=== PATIENT | male | born 1945 | race Caucasian/White ===

== ENCOUNTER 2019-07-15 09:04 | Inpatient (IN) ==
[2019-07-15] MEDS ORDERED: ALBUT/IPRATROP 3MG/0.5MG NEB 3 ML VIAL NEB STA (09:24)
[2019-07-15] MEDS ORDERED: SODIUM CHLORIDE 0.9% 1000ML 500 ML IV ONE (09:25)
[2019-07-15 09:33] LABS: Basophils # (auto) 0.04 K/uL (0-0.2); Basophils % (auto) 0.4 %; Eosinophils # (auto) 0.29 K/uL (0-0.5); Eosinophils % (auto) 2.6 %; Hematocrit (blood only) 45.6 % (42-52); Hemoglobin 15.8 g/dL (14.0-18.0); Immature Granulocytes # (auto) 0.15 K/uL (0.00-0.02); Immature Granulocytes % (auto) 1.3 %; Lymphocytes # (auto) 4.18 K/uL (1.2-3.4); Lymphocytes % (auto) 36.8 %; Mean Corpuscular Hemoglobin 30.2 pg (25-34); Mean Corpuscular Hgb Conc 34.6 g/dL (32-36); Mean Platelet Volume 9.6 fL (7.4-10.4); Monocytes # (auto) 0.56 K/uL (0.11-0.59); Monocytes % (auto) 4.9 %; Neutrophils # (auto) 6.15 K/uL (1.4-6.5); Platelet Count 253 K/uL (130-400); RDW Coefficient of Variation 14.4 % (11.5-14.5); RDW Standard Deviation 45.8 fL (36.4-46.3); Red Blood Count 5.24 M/uL (4.7-6.1); White Blood Count 11.37 K/uL (4.8-10.8)
[2019-07-15 09:50] LABS: Alanine Aminotransferase 21 U/L (12-78); Albumin Level 3.3 gm/dl (3.4-5.0); Aspartate Aminotransferase 19 U/L (15-37); BUN Creatinine Ratio 8.2 (10-20); Bilirubin Direct 0.2 mg/dl (0-0.2); Blood Urea Nitrogen 13 mg/dl (7-18); Calcium 9.1 mg/dl (8.5-10.1); Carbon Dioxide 23 mmol/L (21-32); Chloride 102 mmol/L (98-107); Creatinine Clr Calc Pharmacy 47.1 ml/min; Est GFR (African American) 49.6; Est GFR (Non-African American) 42.8; Glucose 107 mg/dl (70-99); Potassium 4.1 mmol/L (3.5-5.1); Sodium 133 mmol/L (136-145)
[2019-07-15 09:51] LABS: INR 1.1 (0.9-1.1); Prothrombin Time 10.8 Seconds (9.0-12.0)
[2019-07-15 10:00] LABS: Alkaline Phosphatase 115 U/L (45-117); Bilirubin,Total 0.7 mg/dl (0.2-1); Total Protein 7.7 gm/dl (6.4-8.2); Troponin I < 0.015 ng/ml (0-0.045)
--- NOTE | 2019-07-15 10:00 | XRay Report ---
XR chest 1V portable CLINICAL HISTORY: 74 years-old Male presenting with Weakness. TECHNIQUE: PA and lateral views of the chest were obtained. COMPARISON: None. FINDINGS: Atherosclerosis of the aortic arch. Cardiac silhouette mildly enlarged. Prominence of interlobular se ptal markings and added density of the mid to basilar lungs. Lung volumes are normal. Pulmonary vascu lature is normal. Degenerative changes of the thoracic spine. IMPRESSION: 1. Abnormal interstitial lung markings in the bilateral mid to basilar lungs concerning for intersti tial pneumonia or congestive change. 2. Mild cardiomegaly. Electronically signed by: Ricardo Valerio M.D. 07/15/2019 9:59 AM
--- NOTE | 2019-07-15 10:07 | CT Scan Report ---
CT head/brain wo con CLINICAL HISTORY: 74 years-old Male presenting with confusion. TECHNIQUE: Multidetector CT imaging of the head was performed without the use of intravenous contrast . IV contrast: None. One or more dose lowering techniques were used consistent with the principles of ALARA (as low as reasonably achievable), including automatic exposure control, mA or kV adjustment t o individual patient size, and/or use of iterative reconstruction. COMPARISON: None. CT DOSE (mGy.cm): The estimated cumulative dose is 614.27 mGy.cm. 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 Ventricles and sulci normal in size. No hemorrhage. Sulcal effacement and hypoattenuation of the whit e matter and overlying cortex in the left posterior frontal and anterior parietal region. This may mi nimally affect the posterior left temporal lobe. No midline shift. No extra-axial fluid collection. P aranasal sinuses and mastoid air cells clear. Calvarium intact. IMPRESSION: 1. Acute infarct in the left frontoparietal region, which is in the left middle cerebral artery terr itory distribution. No hemorrhage. The report will be called/faxed according to standard departmental protocol for a critical finding. Electronically signed by: Ricardo Valerio M.D. 07/15/2019 10:06 AM
[2019-07-15] MEDS ORDERED: ASPIRIN 81 MG CHEW PO STA (10:23)
--- NOTE | 2019-07-15 10:34 | History & Physical Report ---
Date of Service July 15, 2019 Assessment & Plan (1) Acute ischemic left MCA stroke: Acute CVA: Not a candidate for tPA- Passed the window period Admit in Tele CT head: Acute infarct in the left frontoparietal region, which is in the left middle cerebral artery territory distribution. No hemorrhage. Stroke work up including lipid panel, A1C, MRI Brain, Carotid Doppler, ECHO Speech and swallow eval Start aspirin, plavix, Lipitor Neuro checks, Neurology consult PT/OT Allow permissive HTN in setting of acute CVA Interstitial lung disease COPD Chronic respiratory failure--oxygen dependency 3 liters QHS Chronic prednisone therapy Mild leukocytosis likely secondary to prednisone Chronic cough--unchanged as per patient/family CXR:Abnormal interstitial lung markings in the bilateral mid to basilar lungs concerning for interstitial pneumonia or congestive change. Continue home inhalers Duo nebs as needed Continue prednisone 10 mg daily Continue Supplemental Oxygen at bedtime Ongoing tobacco use Counseled to quit Nicotine patch Rheumatoid arthritis Follows with rheumatology Dr. Ibarra as outpatient Continue leflunomide, prednisone CKD III Baseline Cr ~1.5 Cr at baseline Monitor renal function avoid nephrotoxic agents as able hyperthyroidism TSH wnl Continue methimazole Hypertension Hold hypertension medications in setting of acute CVA Monitor blood pressure Prediabetes: A1C:5.9 MGUS As per records DVT Px: SCDs for now Code Status DNI/DNR Disposition: PT/OT prior to discharge History of Present Illness Chief Complaint: Dizziness, confusion Primary Care Provider: Mukund Roper MD Patient is a 74-year-old male with history of interstitial lung disease, rheumatoid arthritis, CKD III, COPD, tobacco use disorder, hyperthyroidism, nocturnal oxygen dependency, hypertension, MGUS and other problems presents with history of dizziness, confusion, word finding difficulty since yesterday. Patient is a poor historian. Most of the history is obtained from patient's family, ER physician and medical records. Patient was unsure of the events that happened yesterday. On review of records, patient was informed by Barbie JOHNSON that he has oxygen levels at bedtime have been low despite using 2 L and recommended to increase it to 3 L at bedtime. He was noted to be at baseline by family on . Patient states being confused, having dizziness since yesterday. He is currently oriented to place, person. He was noted to have word finding difficulty, intermittent confusion and slurred speech. He admits to having chronic cough which is unchanged, and continues to smoke 1 pack/day. CT head suggestive of acute left frontoparietal infarct. Denies any history of chest pain, SOB, pedal edema, diaphoresis, hemoptysis, fever, chills, fall, head trauma, LOC, headache, focal weakness, numbness, change in vision, double/blurry vision, facial deformity, bowel/bladder incontinence, nausea, vomiting, abdominal pain, blood in stools, diarrhea, dysuria, hematuria, recent change in medications. Allergies Allergy/AdvReac Type Severity Reaction Status Date / Time No Known Allergies Allergy Unverified 07/15/19 10:12 Home Medications Home Medications Medication Instructions Recorded Confirmed Type cholecalciferol (vitamin D3) 2,000 unit PO DAILY 07/15/19 07/15/19 History [Vitamin D3] cyanocobalamin (vitamin B-12) 1,000 mcg PO DAILY 07/15/19 07/15/19 History folic acid 1 mg PO DAILY 07/15/19 07/15/19 History ipratropium-albuterol 3 ml INHALATION Q4H PRN 07/15/19 07/15/19 History leflunomide 10 mg PO DAILY 07/15/19 07/15/19 History lisinopril-hydrochlorothiazide 1 tab PO DAILY 07/15/19 07/15/19 History methimazole 2.5 mg PO DAILY 07/15/19 07/15/19 History prednisone 10 mg PO DAILY 07/15/19 07/15/19 History umeclidinium-vilanterol [Anoro 1 inh INHALATION DAILY 07/15/19 07/15/19 History Ellipta] Past Med/Surg History Medical History Arthritis (Chronic) Thyroid disorder (Chronic) Hypertension (Chronic) Surgical History History of back surgery Family History Other Family history non-contributory Social History Preferred Language: Amharic Communication Ability: 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 Beliefs That Will Affect Care: None marital status: Single Current Living Situation: Alone current occupational status: retired Other Information That Helps Us Care for You: No Feels Safe at Home: Yes Safety Concerns: Feels Safe At This Time Smoking Status: Current every day smoker Tobacco Type: cigarettes ; Do You Dip or Chew Tobacco: No ; Second Hand Exposure: No ; Tobacco Cessation Education Requested by Patient: No Hx Alcohol Use: No Hx Substance Use: No Review of Systems Review of Systems: All systems reviewed & are unremarkable except as noted in HPI & below Physical Exam Physical Exam: Physical Exam: Vitals signs as noted above General Appearance:Moderately built and nourished, no apparent distress Head: normocephalic, Atraumatic, +intermittent slurred speech, word finding difficulty Eyes: normal inspection, EOMI Neck: supple, Trachea midline Respiratory/Chest: Decreased breath sounds, R basal crackles Cardiovascular: S1, S2, No murmur Abdomen/GI:Soft, Non tender, Bowel sounds present Extremities/Musculoskelatal:normal inspection, no edema Neurologic/Psych:grossly no focal neurological deficits Skin: normal color, warm Results & Data Vital Signs (Past 12 Hours) Vital Signs Temp Pulse Pulse Resp BP Pulse Ox 07/15/19 09:38 84 14 98 07/15/19 09:30 89 26 H 114/81 96 07/15/19 09:24 91 H 21 07/15/19 09:22 93 H 20 130/79 07/15/19 09:06 36.6 C 90 22 98/68 L 97 07/15/19 07:36 90 19 158/91 H Laboratory Results Short CBC 07/15/19 Range/Units 09:20 WBC 11.37 H (4.8-10.8) K/uL Hgb 15.8 (14.0-18.0) g/dL Hct 45.6 (42-52) % Plt Count 253 (130-400) K/uL BMP 07/15/19 09:20 Sodium 133 L Potassium 4.1 Chloride 102 Carbon Dioxide 23 BUN 13 Creatinine 1.58 H Glucose 107 H Calcium 9.1 Cardiac Enzymes 07/15/19 Range/Units 09:20 Troponin I < 0.015 (0-0.045) ng/ml Liver Function 07/15/19 Range/Units 09:20 Total Bilirubin 0.7 (0.2-1) mg/dl Direct Bilirubin 0.2 (0-0.2) mg/dl AST 19 (15-37) U/L ALT 21 (12-78) U/L Alkaline Phosphatase 115 (45-117) U/L Albumin 3.3 L (3.4-5.0) gm/dl Diagnostic Findings CT head: Acute infarct in the left frontoparietal region, which is in the left middle cerebral artery territory distribution. No hemorrhage. CXR: 1. Abnormal interstitial lung markings in the bilateral mid to basilar lungs concerning for interstitial pneumonia or congestive change. 2. Mild cardiomegaly. ECG Additional Comments: EKG: Sinus rhythm, first-degree AV block, QTC 445
[2019-07-15] MEDS ORDERED: ACETAMINOPHEN 325 MG TAB PO PRN (12:52)
[2019-07-15] MEDS ORDERED: PHARMACIST DISCHARGE MED REC CONSULT PRN (12:52)
[2019-07-15] MEDS ORDERED: ALBUT/IPRATROP 3MG/0.5MG NEB 3 ML VIAL INH PRN (12:52)
[2019-07-15] MEDS ORDERED: POLYETHYLENE (MIRALAX) 17 GM PACK PO PRN (12:52)
[2019-07-15 13:25] LABS: Estimated Average Glucose 123 mg/dl; Hemoglobin A1C 5.9 % (4.5-5.6)
[2019-07-15] MEDS: NICOTINE 21 MG/24 HR TDSY TD SCH (14:07)
--- NOTE | 2019-07-15 16:22 | Magnetic Resonance Report ---
MR brain wo con CLINICAL HISTORY: 74 years-old Male presenting with Stroke. TECHNIQUE: Multisequence, multiplanar MR imaging of the brain was performed without the use of intrav enous contrast. IV contrast: None. COMPARISON: Noncontrast CT head performed earlier today. FINDINGS: Localizer images: Unremarkable. Bone marrow signal intensity within the calvarium within normal limits. Normal midline sagittal structures. Proportional ventricular and sulcal prominence, likely age-relate d parenchymal volume loss. No midline shift. Diffusion in the left posterior temporal and left pariet al lobe. T2/FLAIR hyperintensity and localized swelling in this region. No extra-axial fluid collection. T2 skull base flow voids preserved. IMPRESSION: 1. Acute infarct in the left posterior temporal and left parietal lobe. This is in the left middle c erebral artery territory distribution. No hemorrhage. Electronically signed by: Ricardo Valerio M.D. 07/15/2019 4:21 PM
--- NOTE | 2019-07-15 16:48 | Ultrasound Report ---
US carotid doppler BI CLINICAL HISTORY: 74 years-old Male presenting with Stroke. TECHNIQUE: Real-time grayscale and color and spectral Doppler ultrasound imaging of the bilateral car otid arteries was performed. Stenosis measurements were based on NASCET-like criteria (distal lumen d iameter as the denominator for stenosis measurement). COMPARISON: None. FINDINGS: RIGHT: Common carotid artery (CCA): Atherosclerosis at the carotid bulb. Peak systolic velocity (PSV) 74 cm/ s. Internal carotid artery (ICA): Patent. PSV 55 cm/s. End diastolic velocity (EDV) 15 cm/s. ICA/CCA (systolic) ratio: 0.7. External carotid artery (ECA): Patent. PSV 70 cm/s. LEFT: CCA: Atherosclerosis at the carotid bulb. PSV 70 cm/s. ICA: Atherosclerosis of the proximal ICA. PSV 107 cm/s. EDV 32 cm/s. ICA/CCA (systolic) ratio: 1.5. ECA: Patent. PSV 96 cm/s. Bilateral antegrade flow within the vertebral arteries. Blood pressure: Not performed Brachial: Right: mmHg, Left: mmHg. Reference ranges: Stenosis measurements are compared to reference velocity parameters by the Society of Radiologists in Ultrasound (SRU) consensus and Sonographic NASCET index (S-NASCET). * SRU Primary parameters: ICA PSV <125 cm/s = normal or less than 50% stenosis; ICA PSV 125-230 cm/s = 50-69% stenosis; ICA PSV >230 cm/s = greater than or equal to 70% stenosis. * SRU Additional parameters: ICA/CCA PSV ratio <2 = normal or less than 50% stenosis; ratio 2-4 = 5 0-69% stenosis; ratio >4 = greater than or equal to 70% stenosis. ICA EDV <40 cm/s = normal or less t sen 50% stenosis; ICA EDV 40-100 cm/s = 50-69% stenosis; ICA EDV >100 cm/s = greater than or equal to 70% stenosis. * S-NASCET parameters: Deceleration spectral broadening + PSV <125 cm/s = less than 50% stenosis; pa nsystolic spectral broadening + PSV <125 cm/s = 16-49% stenosis; pansystolic spectral broadening + PS V >125 cm/s + EDV <110 cm/s or ICA/CCA PSV ratio 2-4 = 50-69% stenosis; pansystolic spectral broadeni ng + PSV >270 cm/s OR EDV >110 cm/s OR ICA/CCA PSV ratio >4 = 70-79% stenosis; EDV >140 cm/s = 80-99% stenosis. IMPRESSION: 1. Atherosclerosis without hemodynamically significant stenosis in the carotid arteries. Electronically signed by: Ricardo Valerio M.D. 07/15/2019 4:46 PM
--- NOTE | 2019-07-15 16:51 | Emergency Department Note ---
Entered by Rachel Landaverde acting as a scribe for Asael Vigil MD ED Provider Note Name: Sherif Castaneda Age: 74M Arrives Via: Private vehicle Informant: Patient CC: Confusion HPI: 74 year old male arrives for evaluation of 2 days of worsening confusion with some associated shortness of breath. The patient reports that his "head feels funny" and states that he is experiencing some memory issues. He notes that he is unsure why he is in the ED today. He denies any coughing, chest pain, fever, chills, syncope, falls, headache, diarrhea, or leg swelling. He notes that he has been feeling short of breath for awhile. He states that he has smoked one pack of cigarettes a day since he was 19 years old. He reports that he wears O2 at night. He states that he has been eating normally. He denies any history of diabetes or dyslipidemia. He notes that he has a history of thyroid issues, hypertension, and arthritis. He denies any history of strokes. He denies drinking alcohol regularly or any substance abuse. He denies any known allergies. He notes that he was hospitalized for pneumonia in the past. The patient's relative reports that the patient seems more confused from his baseline. His relative states that the patient had difficulty remembering her phone number this morning. His relative notes that the patient told her that he had a call last night from an unknown woman that told him to see a doctor due to his O2 saturiation levels. ROS: See above HPI for pertinent positives & negatives. A total of 10 systems reviewed and were otherwise negative. Past Medical History: Hypertension, arthritis, thyroid disorder, chronic back pain, chronic O2 use at night Past Surgical History: Back surgery Family History: No significant family history Social History: Single, retired. Current tobacco smoker, 1 pack a day. No alcohol or substance use. Home Medications: Arthritis, hypertension, and thyroid medications. Allergies NKDA Physical: Vitals: BP: 115/71, HR: 85, R: 18, T: 97.7, O2: 90 Exam: GENERAL: Patient is tired and dehydrated appearing and in no acute distress. Appears older than stated age. EYES: No scleral icterus, unremarkable pupils. ENT: Mucous membranes dry, no nasal congestion. NECK: No masses appreciated, no meningismus, trachea is midline. RESPIRATORY: No dyspnea. Mild diffuse wheezing with some rhonchi in left lower lobe. CARDIOVASCULAR: Regular rate and rhythm with periodic extra beats. No murmurs, rubs, gallops appreciated. GASTROINTESTINAL: Abdomen soft, non-tender, no peritonitis. Bowel sounds positive. No masses appreciated. BACK: No midline tenderness, no CVA tenderness EXTREMITIES: Normal motion all extremities, no cyanosis, no edema. Clubbing of fingertips. NEUROLOGIC: Awake and oriented to name but confused on time, location, and previous events. No acute motor or sensory deficits, no focal weakness, cranial nerves grossly intact. SKIN: No rash, no jaundice, no diaphoresis. GC15 ED Course: Prior Medical Record, Triage/Nursing Notes, Medications, Allergies reviewed by Me Vital Signs: reviewed and remarkable for wnl Labs: Reviewed and unremarkable Interventions: Duoneb, Asa 324mg PO Imaging: Radiology results as stated below per my review and the radiologist's interpretation: CT head/brain wo con CLINICAL HISTORY: 74 years-old Male presenting with confusion. TECHNIQUE: Multidetector CT imaging of the head was performed without the use of intravenous contrast. IV contrast: None. One or more dose lowering techniques were used consistent with the principles of ALARA (as low as reasonably achievable), including automatic exposure control, mA or kV adjustment to individual patient size, and/or use of iterative reconstruction. COMPARISON: None. CT DOSE (mGy.cm): The estimated cumulative dose is 614.27 mGy.cm. 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 Ventricles and sulci normal in size. No hemorrhage. Sulcal effacement and hypoattenuation of the white matter and overlying cortex in the left posterior frontal and anterior parietal region. This may minimally affect the posterior left temporal lobe. No midline shift. No extra-axial fluid collection. Paranasal sinuses and mastoid air cells clear. Calvarium intact. IMPRESSION: 1. Acute infarct in the left frontoparietal region, which is in the left middle cerebral artery territory distribution. No hemorrhage. The report will be called/faxed according to standard departmental protocol for a critical finding. Electronically signed by: Ricardo Valerio M.D. 07/15/2019 10:06 AM XR chest 1V portable CLINICAL HISTORY: 74 years-old Male presenting with Weakness. TECHNIQUE: PA and lateral views of the chest were obtained. COMPARISON: None. FINDINGS: Atherosclerosis of the aortic arch. Cardiac silhouette mildly enlarged. Prominence of interlobular septal markings and added density of the mid to basilar lungs. Lung volumes are normal. Pulmonary vasculature is normal. Degene rative changes of the thoracic spine. IMPRESSION: 1. Abnormal interstitial lung markings in the bilateral mid to basilar lungs concerning for interstitial pneumonia or congestive change. 2. Mild cardiomegaly. Electronically signed by: Ricardo Valerio M.D. 07/15/2019 9:59 AM EKG: Per My Interpretation: Indication Weakness: Sinus 92 bpm with 1st av block and qtc 445. No previous for comparison. No ectopy nor ischemia Course: 916:The patient was evaluated in room B09. A complete history and physical examination was performed. 1019: I reevaluated the patient at this time. He appears to be improving with fluids. He makes it clear that his symptoms started . He confirms that his symptoms were ongoing yesterday upon waking. He denies taking any aspirin or other blood thinners.checked. 1023: I discussed the patient's case with Dr. Richey, Neurology, who agrees with the patient treatment plan. He recommended that waiting before any further imaging. He recommends letting the hospitalist service manage the patient further. 1033: I discussed the patient's case with Dr. Bledsoe, [facility], who will evaluate the patient for further management and care. 1040: Upon reevaluation, the patient is resting comfortably. I discussed laboratory and radiographic results with the patient. He verbalized agreement of the treatment plan. The patient will be evaluated for further management and care. Blood pressure: Normal. No Referral necessary Disposition: Being evaluated by a hospitalist. See plan for instructions. Condition: Good. Prescriptions: none. Differentials: Differential includes acute coronary syndrome, myocardial infarction, CVA, TIA, anemia, infection, pneumonia, UTI, pyelonephritis, poor nutrition, dehydration, electrolyte disturbance,hypoglycemia amongst other pathologies. Medical Decision Makin yr old pleasant individual who was sent in by home nursing for reported hypoxia though after discussing in depth with patient very clearly main issue is his speech finding issues, confusion, and not quite acting himself. Symptoms very much started at least yesterday morning (30 hrs ago) and possibly a day earlier. He has mild wheezing but no significant shortness of breath. NSR on EKG/Monitor. No cardiac history and no evidence this is cva. He has no weakness in strength, reported vision issues, nor other neuro deficits. CT head reveals acute left MCA infarct. I did reveal with Neuro who agree patient is not intervention nor TPA candidate at this time. Given ASA 324mg PO and will defer further imaging to primary team. Impression: Acute left sided MCA stroke The scribe's documentation has been prepared under my direction and personally reviewed by me in its entirety. I confirm that the note above accurately reflects all work, treatment, procedures, and medical decision making performed by me. Asael Vigil MD Impression & Plan Acute ischemic left MCA stroke Past Med/Surg History Medical History Arthritis (Chronic) Thyroid disorder (Chronic) Hypertension (Chronic) Surgical History History of back surgery Family History Other Family history non-contributory Social History Preferred Language: Honduran Communication Ability: Effective Artists' Model Required: No Beliefs That Will Affect Care: None marital status: Single Current Living Situation: Alone current occupational status: retired Other Information That Helps Us Care for You: No Feels Safe at Home: Yes Safety Concerns: Feels Safe At This Time Smoking Status: Current every day smoker Tobacco Type: cigarettes ; Do You Dip or Chew Tobacco: No ; Second Hand Exposure: No ; Tobacco Cessation Education Requested by Patient: No Hx Alcohol Use: No Hx Substance Use: No Results & Data Vital Signs Vital Signs - 24 hr 07/15/19 07:36 07/15/19 09:06 07/15/19 09:22 Temperature 36.6 C Temperature Source Oral Sepsis Recent Fever Within 48 Hours No Sepsis New/Unexplained Change in Mental Status No Sepsis Action Taken by Nursing No Action Required Pulse Oximetry Post Tiitration Pulse Rate 90 90 93 H Pulse Rate [Apical] Pulse Rate from SpO2 Sensor Respiratory Rate 19 22 20 Respiratory Effort / Characteristics Non-Labored Respiratory Depth Normal Respiratory Pattern Blood Pressure 158/91 H 98/68 L 130/79 Blood Pressure Mean 113 78 96 Pulse Oximetry 97 Oxygen Delivery Method Room Air Oxygen Flow Rate 07/15/19 09:24 07/15/19 09:30 07/15/19 09:31 Temperature Temperature Source Sepsis Recent Fever Within 48 Hours Sepsis New/Unexplained Change in Mental Status Sepsis Action Taken by Nursing Pulse Oximetry Post Tiitration 94 Pulse Rate 91 H 89 Pulse Rate [Apical] Pulse Rate from SpO2 Sensor 83 Respiratory Rate 21 26 H Respiratory Effort / Characteristics Non-Labored Respiratory Depth Normal Respiratory Pattern Regular Blood Pressure 114/81 Blood Pressure Mean 92 Pulse Oximetry 96 Oxygen Delivery Method Room Air Oxygen Flow Rate 0 07/15/19 09:38 07/15/19 10:00 07/15/19 10:12 Temperature Temperature Source Sepsis Recent Fever Within 48 Hours Sepsis New/Unexplained Change in Mental Status Sepsis Action Taken by Nursing Pulse Oximetry Post Tiitration Pulse Rate 85 84 Pulse Rate [Apical] 84 Pulse Rate from SpO2 Sensor 80 Respiratory Rate 14 29 H 25 H Respiratory Effort / Characteristics Non-Labored Spontaneous Respiratory Depth Respiratory Pattern Blood Pressure 124/79 Blood Pressure Mean 94 Pulse Oximetry 98 97 Oxygen Delivery Method Room Air Oxygen Flow Rate 07/15/19 10:30 07/15/19 11:00 07/15/19 11:30 Temperature Temperature Source Sepsis Recent Fever Within 48 Hours Sepsis New/Unexplained Change in Mental Status Sepsis Action Taken by Nursing Pulse Oximetry Post Tiitration Pulse Rate 85 82 77 Pulse Rate [Apical] Pulse Rate from SpO2 Sensor 83 Respiratory Rate 25 H 22 24 Respiratory Effort / Characteristics Respiratory Depth Respiratory Pattern Blood Pressure 123/74 132/88 Blood Pressure Mean 90 102 Pulse Oximetry 96 Oxygen Delivery Method Oxygen Flow Rate 07/15/19 11:31 07/15/19 12:00 Temperature Temperature Source Sepsis Recent Fever Within 48 Hours Sepsis New/Unexplained Change in Mental Status Sepsis Action Taken by Nursing Pulse Oximetry Post Tiitration Pulse Rate 80 78 Pulse Rate [Apical] Pulse Rate from SpO2 Sensor Respiratory Rate 18 23 Respiratory Effort / Characteristics Respiratory Depth Respiratory Pattern Blood Pressure 130/77 128/79 Blood Pressure Mean 94 95 Pulse Oximetry Oxygen Delivery Method Oxygen Flow Rate Home Medications Current Medication List: was personally reviewed by me Laboratory Data Attestation: I reviewed the patient's lab results. Result diagrams: 07/15/19 09:20 07/15/19 09:20 Lab Results 07/15/19 07/15/19 07/15/19 Range/Units 09:00 09:20 09:20 WBC 11.37 H (4.8-10.8) K/uL RBC 5.24 (4.7-6.1) M/uL Hgb 15.8 (14.0-18.0) g/dL Hct 45.6 (42-52) % MCV 87.0 (80-100) fL MCH 30.2 (25-34) pg MCHC 34.6 (32-36) g/dL RDW Std Deviation 45.8 (36.4-46.3) fL RDW Coeff of Hebert 14.4 (11.5-14.5) % Plt Count 253 (130-400) K/uL MPV 9.6 (7.4-10.4) fL Immature Gran % (Auto) 1.3 % Neut % (Auto) 54.0 % Lymph % (Auto) 36.8 % [place] % (Auto) 4.9 % Eos % (Auto) 2.6 % Baso % (Auto) 0.4 % Immature Gran # (Auto) 0.15 H (0.00-0.02) K/uL Neut # (Auto) 6.15 (1.4-6.5) K/uL Lymph # (Auto) 4.18 H (1.2-3.4) K/uL [place] # (Auto) 0.56 (0.11-0.59) K/uL Eos # (Auto) 0.29 (0-0.5) K/uL Baso # (Auto) 0.04 (0-0.2) K/uL PT 10.8 (9.0-12.0) Seconds INR 1.1 (0.9-1.1) Sodium (136-145) mmol/L Potassium (3.5-5.1) mmol/L Chloride (98-107) mmol/L Carbon Dioxide (21-32) mmol/L Anion Gap (3-11) BUN (7-18) mg/dl Creatinine (0.6-1.4) mg/dl Est Cr Clr Drug Dosing ml/min Est GFR ( Amer) Est GFR (Non-Af Amer) BUN/Creatinine Ratio (10-20) Glucose (70-99) mg/dl Estimat Average Glucose 123 mg/dl Hemoglobin A1c 5.9 H (4.5-5.6) % Calcium (8.5-10.1) mg/dl Magnesium (1.8-2.4) mg/dl Total Bilirubin (0.2-1) mg/dl Direct Bilirubin (0-0.2) mg/dl AST (15-37) U/L ALT (12-78) U/L Alkaline Phosphatase (45-117) U/L Troponin I (0-0.045) ng/ml Total Protein (6.4-8.2) gm/dl Albumin (3.4-5.0) gm/dl TSH (0.300-4.500) uIu/ml 07/15/19 Range/Units 09:20 WBC (4.8-10.8) K/uL RBC (4.7-6.1) M/uL Hgb (14.0-18.0) g/dL Hct (42-52) % MCV (80-100) fL MCH (25-34) pg MCHC (32-36) g/dL RDW Std Deviation (36.4-46.3) fL RDW Coeff of Hebert (11.5-14.5) % Plt Count (130-400) K/uL MPV (7.4-10.4) fL Immature Gran % (Auto) % Neut % (Auto) % Lymph % (Auto) % [place] % (Auto) % Eos % (Auto) % Baso % (Auto) % Immature Gran # (Auto) (0.00-0.02) K/uL Neut # (Auto) (1.4-6.5) K/uL Lymph # (Auto) (1.2-3.4) K/uL [place] # (Auto) (0.11-0.59) K/uL Eos # (Auto) (0-0.5) K/uL Baso # (Auto) (0-0.2) K/uL PT (9.0-12.0) Seconds INR (0.9-1.1) Sodium 133 L (136-145) mmol/L Potassium 4.1 (3.5-5.1) mmol/L Chloride 102 (98-107) mmol/L Carbon Dioxide 23 (21-32) mmol/L Anion Gap 8.0 (3-11) BUN 13 (7-18) mg/dl Creatinine 1.58 H (0.6-1.4) mg/dl Est Cr Clr Drug Dosing 47.1 ml/min Est GFR ( Amer) 49.6 Est GFR (Non-Af Amer) 42.8 BUN/Creatinine Ratio 8.2 L (10-20) Glucose 107 H (70-99) mg/dl Estimat Average Glucose mg/dl Hemoglobin A1c (4.5-5.6) % Calcium 9.1 (8.5-10.1) mg/dl Magnesium 2.0 (1.8-2.4) mg/dl Total Bilirubin 0.7 (0.2-1) mg/dl Direct Bilirubin 0.2 (0-0.2) mg/dl AST 19 (15-37) U/L ALT 21 (12-78) U/L Alkaline Phosphatase 115 (45-117) U/L Troponin I < 0.015 (0-0.045) ng/ml Total Protein 7.7 (6.4-8.2) gm/dl Albumin 3.3 L (3.4-5.0) gm/dl TSH 2.380 (0.300-4.500) uIu/ml Administered Medications Miscellaneous (Order Awaiting Action) 1 ea N/A QS NICK Stop: 08/14/19 15:59 Last Admin: 07/15/19 16:43 Dose: Not Given Documented by: [id number] Nicotine (Nicoderm Cq) 21 mg TD QAM [facility] Stop: 08/14/19 13:59 Last Admin: 07/15/19 14:07 Dose: 21 mg Documented by: [id number] Discontinued Medications Albuterol (Duoneb) 3 ml NEB NOW STA Stop: 07/15/19 09:25 Last Admin: 07/15/19 09:36 Dose: 3 ml Documented by: [id number] Aspirin (Aspirin Chew) 324 mg PO NOW STA Stop: 07/15/19 10:24 Last Admin: 07/15/19 10:38 Dose: 324 mg Documented by: [id number] Sodium Chloride (Nss 1000ml) 500 mls @ 999 mls/hr IV .Q31M ONE Stop: 07/15/19 09:55 Last Infusion: 07/15/19 11:42 Dose: 0 mls/hr Documented by: [id number] Admin: 07/15/19 10:13 Dose: 999 mls/hr Documented by: [id number] Blood Pressure Blood Pressure Findings: Normal blood pressure Discharge Plan Visit Data *Final* Discharge Date/Time: 07/15/19 12:35 Chief Complaint: Shortness of Breath/Dyspnea Stated Complaint: LACK OF OXYGEN ED Provider: Asael Vigil Discharge Problem: Acute ischemic left MCA stroke Patient Disposition: Admitted As Inpatient Discharge Instructions Interventions: ED Discharge Assessment Last Done: 07/15/19 12:35 The scribe's documentation has been prepared under my direction and personally reviewed by me in its entirety. I confirm that the note above accurately reflects all work, treatment, procedures, and medical decision making performed by me.
[2019-07-16 02:47] LABS: Appearance Urine Clear (Clear); Bilirubin Urine Negative (Negative); Blood Urine Negative (Negative); Color Urine Yellow; Glucose Urine UA Negative (Negative); Ketones Urine 1+ (Negative); Leukocyte Esterase Urine Negative (Negative); Nitrite Urine Negative (Negative); Protein Urine Negative (Negative); Specific Gravity Urine 1.012 (1.000-1.030); Urobilinogen Urine Negative (Negative)
[2019-07-16 05:58] LABS: Basophils # (auto) 0.05 K/uL (0-0.2); Basophils % (auto) 0.6 %; Eosinophils # (auto) 0.24 K/uL (0-0.5); Eosinophils % (auto) 3.1 %; Hematocrit (blood only) 42.9 % (42-52); Hemoglobin 14.9 g/dL (14.0-18.0); Immature Granulocytes # (auto) 0.18 K/uL (0.00-0.02); Immature Granulocytes % (auto) 2.3 %; Lymphocytes # (auto) 2.22 K/uL (1.2-3.4); Lymphocytes % (auto) 28.4 %; Mean Corpuscular Hemoglobin 30.2 pg (25-34); Mean Corpuscular Hgb Conc 34.7 g/dL (32-36); Mean Platelet Volume 9.5 fL (7.4-10.4); Monocytes # (auto) 0.46 K/uL (0.11-0.59); Monocytes % (auto) 5.9 %; Neutrophils # (auto) 4.68 K/uL (1.4-6.5); Neutrophils % (auto) 59.7 %; Platelet Count 220 K/uL (130-400); RDW Coefficient of Variation 14.3 % (11.5-14.5); RDW Standard Deviation 45.8 fL (36.4-46.3); Red Blood Count 4.93 M/uL (4.7-6.1); White Blood Count 7.83 K/uL (4.8-10.8)
[2019-07-16 06:31] LABS: BUN Creatinine Ratio 9.8 (10-20); Calcium 8.4 mg/dl (8.5-10.1); Creatinine Clr Calc Pharmacy 57.2 ml/min; Est GFR (African American) 62.7; Est GFR (Non-African American) 54.1; Magnesium 2.1 mg/dl (1.8-2.4)
[2019-07-16] MEDS: CLOPIDOGREL BISULFATE 75 MG TAB PO SCH (08:11)
[2019-07-16] MEDS: NICOTINE 21 MG/24 HR TDSY TD SCH (08:11)
[2019-07-16] MEDS: FOLIC ACID 1 MG TAB PO SCH (08:11)
[2019-07-16] MEDS: ASPIRIN 81 MG ECTAB PO SCH (08:12)
[2019-07-16] MEDS: LEFLUNOMIDE 10 MG TAB PO SCH (08:12)
[2019-07-16] MEDS: methIMAzole 5 MG TABLET PO SCH (08:12)
[2019-07-16] MEDS: ATORVASTATIN 40 MG TAB PO SCH (08:12)
[2019-07-16] MEDS: predniSONE 10 MG TABLET PO SCH (08:13)
--- NOTE | 2019-07-16 09:40 | Neurology Consultation ---
Date of Consultation July 16, 2019 Assessment & Plan (1) Acute ischemic left MCA stroke: Mr. Castaneda is a pleasant 74 year old male with Hx of RA admitted with acute left posterior division MCA stroke with mixed receptive and expressive aphasia. Carotid US showed no carotid stenosis. He has no history of stroke. - Etiology: appears embolic (cortical stroke) - Agree with dual antiplatlet therapy for 21-days, then ASA 81 mg daily - Lipitor 40 mg daily - Recommend CTA head and neck - Recommend TTE with [facility] - Continue telemetry. Recommend 30-day event monitor after discharge. Consider discussing with cardiology recommendaitons for paroxysmal Afib evaluation. - SBP goa <140 , DBP<90 - Speech Therapy (2) Aphasia: History of Present Illness Attending Physician: Demario Bledsoe MD History of Present Illness A 74 year old male admitted with an acute left MCA stroke yesterday. Carotid US showed no high grade stenosis. Patient did not receive IV TPA as he was outside the window for IV TPA. CT head non contrast in the ED showed an acute left MCA stroke. no hemorrhage. He has a history of rheumatoid arthritis and chronic steroid use, interstitial lung disease, COPD, chronic respiratory failure on O2 at night, CKD stage III, hyperthyroidism, MGUS, and insulin resistance. No history of stroke or IA. Denies numbness or weakness. Denies facial droop. The only symptoms he reports he noticed was speech changes yesterday. Allergies Allergy/AdvReac Type Severity Reaction Status Date / Time No Known Allergies Allergy Unverified 07/15/19 10:12 Home Medications Home Medications Medication Instructions Recorded Confirmed Type cholecalciferol (vitamin D3) 2,000 unit PO DAILY 07/15/19 07/15/19 History [Vitamin D3] cyanocobalamin (vitamin B-12) 1,000 mcg PO DAILY 07/15/19 07/15/19 History folic acid 1 mg PO DAILY 07/15/19 07/15/19 History ipratropium-albuterol 3 ml INHALATION Q4H PRN 07/15/19 07/15/19 History leflunomide 10 mg PO DAILY 07/15/19 07/15/19 History lisinopril-hydrochlorothiazide 1 tab PO DAILY 07/15/19 07/15/19 History methimazole 2.5 mg PO DAILY 07/15/19 07/15/19 History prednisone 10 mg PO DAILY 07/15/19 07/15/19 History umeclidinium-vilanterol [Anoro 1 inh INHALATION DAILY 07/15/19 07/15/19 History Ellipta] Patient History Medical History Arthritis (Chronic) Thyroid disorder (Chronic) Hypertension (Chronic) Surgical History History of back surgery Family History Other Family history non-contributory Social History Preferred Language: Gabonese Communication Ability: Effective Tyre Builder Required: No Beliefs That Will Affect Care: None marital status: Single Current Living Situation: Alone current occupational status: retired Other Information That Helps Us Care for You: No Feels Safe at Home: Yes Safety Concerns: Feels Safe At This Time Smoking Status: Current every day smoker Tobacco Type: cigarettes ; Do You Dip or Chew Tobacco: No ; Second Hand Exposure: No ; Tobacco Cessation Education Requested by Patient: No Hx Alcohol Use: No Hx Substance Use: No Physical Exam Physical Exam: EXAM: Constitutional: appearance normally developed, well nourished and non-obese Head and Face: normocephalic and atraumatic Eyes: normal lids, normal conjunctiva, fundi visualized Neck: supple Respiratory: normal effort Cardiovascular: normal pulses Abdomen: non distended Skin: clubbing of fingers nails MSK: arthritic changes in hands Psychiatric: normal judgement and insight, normal mood and normal affect NEUROLOGIC EXAMINATION: Appearance: no acute distress Orientation: awake, alert and oriented x 3 Mental Status: alert Memory: registration 3/3 and recall 3/3 Attention: normal Knowledge: appropriate Language: mixed aphasia, speech is non fluent, not able to repeat, mild receptive aphasia Speech: no dysarthria Cranial Nerves: CN 2 - no visual defect on confrontation and pupils round, equal, reactive to li ght CN 3, 4, 6 - extra-ocular movements intact and no nystagmus CN 5 - facial sensation intact CN 7 - no facial asymmetry CN 8 - intact hearing CN 9, 10 - palate symmetric CN 11 - good shoulder shrug CN 12 - tongue midline Gait: deferred Coordination: no ataxia with finger to nose testing and heel to rizzo testing Sensory: intact to light touch Muscle Tone: normal Muscle exam: 5/5 throughout Reflexes: hypoactive at the knees and ankles Results & Data Vital Signs (Past 12 Hours) Vital Signs Temp Pulse Pulse Pulse Resp BP BP 07/16/19 08:20 93 H 07/16/19 07:25 36.8 C 87 17 111/65 07/16/19 03:46 36.6 C 95 H 14 105/71 07/16/19 00:00 114 H 07/15/19 23:14 37.0 C 94 H 17 107/69 Pulse Ox 07/16/19 08:20 07/16/19 07:25 95 07/16/19 03:46 92 07/16/19 00:00 07/15/19 23:14 93 Diagnostic Findings MRI Sha[place]ille: Acute infarct in the left posterior temporal and left parietal lobe. This is in the left middle cerebral artery territory distribution. No hemorrhage. Carotid US:1. Atherosclerosis without hemodynamically significant stenosis in the carotid arteries.
[2019-07-16] MEDS ORDERED: SODIUM CHLORIDE 0.9% 1000ML 1,000 ML IV ONE (14:08)
[2019-07-16] MEDS ORDERED: OPTIRAY 320 125ml IV PRN (15:02)
--- NOTE | 2019-07-16 15:27 | CT Scan Report ---
HEAD & NECK CTA HISTORY: Left-sided stroke. Stroke TECHNIQUE: Multiaxial CT images of the head were performed following the intravenous administration o f contrast to evaluate the major cerebral vessels. Multiaxial CT images of the neck were also perform ed following the intravenous administration of contrast to evaluate the major cervical vessels. Maxim um intensity projection images were also obtained. A dose lowering technique was utilized adhering to the principles of ALARA. COMPARISON: Head CT and brain MRI 07/15/2019. FINDINGS: There is again noted focal hypodensity involving the left posterior temporal/parietal region consiste nt with the acute infarct. Visualized intracranial internal carotid arteries, distal vertebral arteri es, and basilar artery are widely patent. 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 The distal left MCA branches at the site of acute i nfarct or attenuated. However, no focal occlusion identified within the left MCA. There is a persiste nt right posterior circulation considered to be a normal variant. The major dural venous sinuse s appear patent. The aortic arch and proximal great vessels are widely patent. There is no significant stenosis, occ lusion, or dissection identified within the bilateral common carotid, internal carotid, or vertebral arteries. Emphysema. Mild calcified plaque within the proximal bilateral carotid bifurcations. There is also focal noncalcified plaque within the proximal left internal carotid artery resulting in 40% f ocal stenosis. This is best seen on axial image 232. IMPRESSION: 1. The distal left MCA branches at the site of acute infarct or attenuated. However, no focal occlusi on identified within the left MCA. 2. There is 40% focal stenosis within the proximal left internal carotid artery due to the noncalcifi ed plaque. 2. Otherwise, no significant stenosis, occlusion, or dissection identified within the right carotid o r vertebral arteries. Electronically signed by: Grey Salinas M.D. 07/16/2019 3:25 PM
--- NOTE | 2019-07-16 17:52 | Hospitalist Progress Note ---
Date of Service July 16, 2019 Assessment & Plan (1) Acute ischemic left MCA stroke: Acute CVA: Not a candidate for tPA- Passed the window period Admit in Tele --CT head: Acute infarct in the left frontoparietal region, which is in the left middle cerebral artery territory distribution. No hemorrhage. --Head/Neck CTA:The distal left MCA branches at the site of acute infarct or attenuated. However, no focal occlusion identified within the left MCA. There is 40% focal stenosis within the proximal left internal carotid artery due to the noncalcified plaque. Otherwise, no significant stenosis, occlusion, or dissection identified within the right carotid or vertebral arteries. --MRI Brain:Acute infarct in the left posterior temporal and left parietal lobe. This is in the left middle cerebral artery territory distribution. No hemorrhage. --ECHO: No ASD, No interatrial shunt A1C:5.9 Speech eval done Continue aspirin, plavix for 21 days and then aspirin 81 mg daily Continue Lipitor Neuro checks Appreciate Neurology Input PT/OT Needs 30-day event monitor upon discharge Interstitial lung disease COPD Chronic respiratory failure--oxygen dependency 3 liters QHS Chronic prednisone therapy Mild leukocytosis likely secondary to prednisone Chronic cough--unchanged as per patient/family CXR:Abnormal interstitial lung markings in the bilateral mid to basilar lungs concerning for interstitial pneumonia or congestive change. Continue home inhalers Duonebs as needed Continue prednisone 10 mg daily Continue Supplemental Oxygen at bedtime Ongoing tobacco use Counseled to quit Nicotine patch Rheumatoid arthritis Follows with rheumatology Dr. Ibarra as outpatient Continue leflunomide, prednisone CKD III Baseline Cr ~1.5 Cr at baseline Monitor renal function avoid nephrotoxic agents as able hyperthyroidism TSH wnl Continue methimazole Hypertension Held hypertension medications in setting of acute CVA Monitor blood pressure Plan to resume HTN meds when BP improves Prediabetes: A1C:5.9 MGUS As per records DVT Px: SCDs Code Status DNI/DNR Disposition: PT/OT prior to discharge Subjective Patient is seen and examined at bedside Speech is slightly better today No focal weakness Denies any chest pain, SOB, dizziness Offers no other complaints Review of Systems Review of Systems: All systems reviewed & are unremarkable except as noted in HPI & below Physical Exam Physical Exam: Physical Exam: Vitals signs as noted above General Appearance:Moderately built and nourished, no apparent distress Head: normocephalic, Atraumatic, +slurred speech, word finding difficulty--improving Eyes: normal inspection, EOMI Neck: supple, Trachea midline Respiratory/Chest: Decreased breath sounds, R basal crackles Cardiovascular: S1, S2, No murmur Abdomen/GI:Soft, Non tender, Bowel sounds present Extremities/Musculoskelatal:normal inspection, no edema Neurologic/Psych:grossly no focal neurological deficits Skin: normal color, warm Results & Data Vital Signs (Past 12 Hours) Vital Signs Temp Pulse Pulse Resp BP BP Pulse Ox 07/16/19 17:10 105 H 07/16/19 15:41 36.9 C 90 18 118/76 92 07/16/19 11:08 36.4 C L 84 19 119/73 93 07/16/19 08:20 93 H 07/16/19 07:25 36.8 C 87 17 111/65 95 Laboratory Results Short CBC 07/16/19 Range/Units 05:35 WBC 7.83 (4.8-10.8) K/uL Hgb 14.9 (14.0-18.0) g/dL Hct 42.9 (42-52) % Plt Count 220 (130-400) K/uL BMP 07/16/19 05:35 Sodium 133 L Potassium 4.0 Chloride 103 Carbon Dioxide 22 BUN 13 Creatinine 1.30 Glucose 78 Calcium 8.4 L Urine 07/16/19 Range/Units 02:40 Urine Color Yellow Urine Appearance Clear (Clear) Urine pH 6.0 (4.5-7.5) Ur Specific [place] 1.012 (1.000-1.030) Urine Protein Negative (Negative) Urine Glucose (UA) Negative (Negative)
[2019-07-17 06:49] LABS: BUN Creatinine Ratio 11.3 (10-20); Calcium 8.7 mg/dl (8.5-10.1); Creatinine Clr Calc Pharmacy 51.6 ml/min; Est GFR (African American) 55.4; Est GFR (Non-African American) 47.8; Potassium 3.8 mmol/L (3.5-5.1)
[2019-07-17] MEDS: CLOPIDOGREL BISULFATE 75 MG TAB PO SCH (08:45)
[2019-07-17] MEDS: LEFLUNOMIDE 10 MG TAB PO SCH (08:45)
[2019-07-17] MEDS: FOLIC ACID 1 MG TAB PO SCH (08:45)
[2019-07-17] MEDS: predniSONE 10 MG TABLET PO SCH (08:45)
[2019-07-17] MEDS: ASPIRIN 81 MG ECTAB PO SCH (08:45)
[2019-07-17] MEDS: NICOTINE 21 MG/24 HR TDSY TD SCH (08:45)
[2019-07-17] MEDS: ATORVASTATIN 40 MG TAB PO SCH (08:45)
[2019-07-17] MEDS: methIMAzole 5 MG TABLET PO SCH (08:46)
[2019-07-17] MEDS ORDERED: UMECLIDINIUM BRM INH SCH (09:00)
[2019-07-17] MEDS ORDERED: VILANTEROL INH SCH (09:00)
--- NOTE | 2019-07-17 09:08 | Neurology Progress Note ---
Date of Service July 17, 2019 Assessment & Plan (1) Acute ischemic left MCA stroke: Mr. Castaneda is a pleasant 74 year old male with Hx of RA admitted with acute left posterior division MCA stroke with mixed receptive and expressive aphasia. CTA head and neck shows 40% left ICA stenosis. - Etiology: appears embolic - Agree with dual antiplatlet therapy for 21-days, then ASA 81 mg daily - Lipitor 40 mg daily - Recommend outpatient vascular surgery or neurosurgery for left carotid disease - TTE showed normal EF with no cardiac source of embolism - SBP goal <140 , DBP<90 - Speech Therapy Neurology follow up in 8 weeks (2) Aphasia: Subjective Patient was seen and examined. Denies any new complaints or concerns. Speech has not returned to baseline. he is happy to be going home. Results & Data Vital Signs (Past 12 Hours) Vital Signs Temp Pulse Pulse Resp BP Pulse Ox 07/17/19 08:30 72 07/17/19 07:55 36.5 C 54 L 18 116/70 96 07/17/19 03:21 36.6 C 76 17 116/73 95 07/16/19 23:35 36.7 C 86 17 108/69 91 07/16/19 23:34 94 H
--- NOTE | 2019-07-17 12:30 | Hospitalist Progress Note ---
Date of Service July 17, 2019 Assessment & Plan (1) Acute ischemic left MCA stroke: Acute CVA: Not a candidate for tPA- Passed the window period Admit in Tele --CT head: Acute infarct in the left frontoparietal region, which is in the left middle cerebral artery territory distribution. No hemorrhage. --Head/Neck CTA:The distal left MCA branches at the site of acute infarct or attenuated. However, no focal occlusion identified within the left MCA. There is 40% focal stenosis within the proximal left internal carotid artery due to the noncalcified plaque. Otherwise, no significant stenosis, occlusion, or dissection identified within the right carotid or vertebral arteries. --MRI Brain:Acute infarct in the left posterior temporal and left parietal lobe. This is in the left middle cerebral artery territory distribution. No hemorrhage. --ECHO: No ASD, No interatrial shunt A1C:5.9 Speech eval done Continue aspirin, plavix for 21 days and then aspirin 81 mg daily Continue Lipitor Neuro checks Appreciate Neurology Input PT/OT Needs 30-day event monitor upon discharge Continue current medications Interstitial lung disease COPD Chronic respiratory failure--oxygen dependency 3 liters QHS Chronic prednisone therapy Mild leukocytosis likely secondary to prednisone Chronic cough--unchanged as per patient/family CXR:Abnormal interstitial lung markings in the bilateral mid to basilar lungs concerning for interstitial pneumonia or congestive change. Continue home inhalers Duonebs as needed Continue prednisone 10 mg daily Continue Supplemental Oxygen at bedtime Ongoing tobacco use Counseled to quit Nicotine patch Rheumatoid arthritis Follows with rheumatology Dr. Ibarra as outpatient Continue leflunomide, prednisone CKD III Baseline Cr ~1.5 Cr at baseline Monitor renal function avoid nephrotoxic agents as able hyperthyroidism TSH wnl Continue methimazole Hypertension Held hypertension medications in setting of acute CVA Monitor blood pressure Plan to resume HTN meds when BP improves Prediabetes: A1C:5.9 MGUS As per records DVT Px: SCDs Code Status DNI/DNR Disposition: Plan to discharge home with Home Health Subjective Patient is seen and examined at bedside Doing much better today Speech/expressive aphasia slowly improving No new complaints Denies focal weakness Also denies any chest pain, SOB, dizziness Review of Systems Review of Systems: All systems reviewed & are unremarkable except as noted in HPI & below Physical Exam Physical Exam: Physical Exam: Vitals signs as noted above General Appearance:Moderately built and nourished, no apparent distress Head: normocephalic, Atraumatic, +slurred speech, word finding difficulty--improving Eyes: normal inspection, EOMI Neck: supple, Trachea midline Respiratory/Chest: Decreased breath sounds, R basal crackles Cardiovascular: S1, S2, No murmur Abdomen/GI:Soft, Non tender, Bowel sounds present Extremities/Musculoskelatal:normal inspection, no edema Neurologic/Psych:grossly no focal neurological deficits Skin: normal color, warm Results & Data Vital Signs (Past 12 Hours) Vital Signs Temp Pulse Pulse Resp BP BP Pulse Ox 07/17/19 11:02 36.6 C 73 22 118/69 94 07/17/19 08:30 72 07/17/19 07:55 36.5 C 54 L 18 116/70 96 07/17/19 03:21 36.6 C 76 17 116/73 95 Laboratory Results [facility] 07/17/19 05:36 Sodium 138 Potassium 3.8 Chloride 106 Carbon Dioxide 25 BUN 16 Creatinine 1.44 H Glucose 87 Calcium 8.7
[2019-07-17] MEDS ORDERED: STROKE PATIENT DISCHARGE STA (12:35)
--- NOTE | 2019-07-17 12:37 | Discharge Summary ---
Date of Service July 17, 2019 Admission HPI Per Admitting Provider Patient is a 74-year-old male with history of interstitial lung disease, rheumatoid arthritis, CKD III, COPD, tobacco use disorder, hyperthyroidism, nocturnal oxygen dependency, hypertension, MGUS and other problems presents with history of dizziness, confusion, word finding difficulty since yesterday. Patient is a poor historian. Most of the history is obtained from patient's family, ER physician and medical records. Patient was unsure of the events that happened yesterday. On review of records, patient was informed by Barbie JOHNSON that he has oxygen levels at bedtime have been low despite using 2 L and recommended to increase it to 3 L at bedtime. He was noted to be at baseline by family on . Patient states being confused, having dizziness since yesterday. He is currently oriented to place, person. He was noted to have word finding difficulty, intermittent confusion and slurred speech. He admits to having chronic cough which is unchanged, and continues to smoke 1 pack/day. CT head suggestive of acute left frontoparietal infarct. Denies any history of chest pain, SOB, pedal edema, diaphoresis, hemoptysis, fever, chills, fall, head trauma, LOC, headache, focal weakness, numbness, change in vision, double/blurry vision, facial deformity, bowel/bladder incontinence, nausea, vomiting, abdominal pain, blood in stools, diarrhea, dysuria, hematuria, recent change in medications. Admission Exam Per Admitting Provider Physical Exam: Vitals signs as noted above General Appearance:Moderately built and nourished, no apparent distress Head: normocephalic, Atraumatic, +intermittent slurred speech, word finding difficulty Eyes: normal inspection, EOMI Neck: supple, Trachea midline Respiratory/Chest: Decreased breath sounds, R basal crackles Cardiovascular: S1, S2, No murmur Abdomen/GI:Soft, Non tender, Bowel sounds present Extremities/Musculoskelatal:normal inspection, no edema Neurologic/Psych:grossly no focal neurological deficits Skin: normal color, warm Principal Diagnosis Discharge Information Discharge Diagnosis Acute Stroke Discharge Goals Decrease discomfort,Improve disease control, Improve function Discharge Activity Limitations Per instructions/follow-up Discharge Data Allergies Allergy/AdvReac Type Severity Reaction Status Date / Time No Known Allergies Allergy Unverified 07/15/19 10:12 Consultations 07/15/19 10:31 ED Decision to Admit Stat 07/15/19 12:52 Consult Case Management - Discharge Planning Routine Consult Neurology Routine Procedures Performed --CT head: Acute infarct in the left frontoparietal region, which is in the left middle cerebral artery territory distribution. No hemorrhage. --Head/Neck CTA:The distal left MCA branches at the site of acute infarct or attenuated. However, no focal occlusion identified within the left MCA. There is 40% focal stenosis within the proximal left internal carotid artery due to the noncalcified plaque. Otherwise, no significant stenosis, occlusion, or dissection identified within the right carotid or vertebral arteries. --MRI Brain:Acute infarct in the left posterior temporal and left parietal lobe. This is in the left middle cerebral artery territory distribution. No hemorrhage. --ECHO: No ASD, No interatrial shunt Ordered Studies 07/15/19 09:24 CT head/brain wo con Stat 07/15/19 12:52 MR brain wo con Routine US carotid doppler BI Routine 07/16/19 14:06 CT angio head w con Routine CT angio neck with con Routine Hospital Course (1) Acute ischemic left MCA stroke: Acute CVA: Not a candidate for tPA- Passed the window period Admit in Tele --CT head: Acute infarct in the left frontoparietal region, which is in the left middle cerebral artery territory distribution. No hemorrhage. --Head/Neck CTA:The distal left MCA branches at the site of acute infarct or attenuated. However, no focal occlusion identified within the left MCA. There is 40% focal stenosis within the proximal left internal carotid artery due to the noncalcified plaque. Otherwise, no significant stenosis, occlusion, or dissection identified within the right carotid or vertebral arteries. --MRI Brain:Acute infarct in the left posterior temporal and left parietal lobe. This is in the left middle cerebral artery territory distribution. No hemorrhage. --ECHO: No ASD, No interatrial shunt A1C:5.9 Speech eval done Continue aspirin, plavix for 21 days and then aspirin 81 mg daily Continue Lipitor Neuro checks Appreciate Neurology Input PT/OT Needs 30-day event monitor upon discharge Continue current medications Interstitial lung disease COPD Chronic respiratory failure--oxygen dependency 3 liters QHS Chronic prednisone therapy Mild leukocytosis likely secondary to prednisone Chronic cough--unchanged as per patient/family CXR:Abnormal interstitial lung markings in the bilateral mid to basilar lungs concerning for interstitial pneumonia or congestive change. Continue home inhalers Duonebs as needed Continue prednisone 10 mg daily Continue Supplemental Oxygen at bedtime Ongoing tobacco use Counseled to quit Nicotine patch Rheumatoid arthritis Follows with rheumatology Dr. Ibarra as outpatient Continue leflunomide, prednisone CKD III Baseline Cr ~1.5 Cr at baseline Monitor renal function avoid nephrotoxic agents as able hyperthyroidism TSH wnl Continue methimazole Hypertension Held hypertension medications in setting of acute CVA Monitor blood pressure Plan to resume HTN meds when BP improves Prediabetes: A1C:5.9 MGUS As per records DVT Px: SCDs Code Status DNI/DNR Disposition: Plan to discharge home with Home Health Total Time Total Time Spent Total Time Spent (In Minutes): 40 minutes Total Time Includes: Examination of the Patient, Discharge Planning, Medication Reconciliation, Communication With Other Providers and Other Discharge Plan Discharge Items Patient Disposition: Home - Home Health Services Reason For Visit: ACUTE CVA Discharge Diagnosis: Acute Stroke Discharge Goals: Decrease discomfort, Improve disease control and Improve function Activity: Per 'Additional Instructions' section Exercise/Sports: Gradually increase as tolerated Non-emergency contact: Primary Care Provider and Neurologist Call non-emergency contact if: you have any medication questions, your symptoms worsen, your pain is not controlled, your pain is worsening, your pain is unusual for you, your pain is concerning for you and you have a fever Follow-up/Referrals: Mukund Roper MD [Primary Care Provider] - Diet: Heart Healthy Addtl Provider Instructions: Follow-up with your primary care physician Dr. Roper in 1 week Follow-up with your neurologist Dr. Milan in 4 weeks as advised Discussed with your primary care physician/cardiology regarding 30-day event monitor(ZIO patch) to rule out arrhythmias as advised by your neurologist. Quit smoking tobacco as advised Continue taking aspirin, clopidogrel for 21 days and then aspirin 81 mg daily Seek immediate medical attention if your symptoms reoccur or worsen Risk Factors for Stroke: You can reduce your chances of stroke by working with your medical provider to adopt a healthy lifestyle. Some specific ways to lower your chance of stroke are: * If you are a smoker, now is the time to stop smoking cigarettes * If you are diabetic, improve the control of your blood sugars * Avoid excessive amounts of alcohol * Control high blood pressure * Lose weight if you are overweight * Be sure to lead an active lifestyle * Eat a healthy diet low in salt, cholesterol and fat You should know about other risk factors for stroke that you are unable to control. These include: * Age 55 years or older * Male gender * Certain racial groups: , or / * Family History of Stroke, Mini stroke or Heart Attack * Sickle Cell Disease Follow Up: It is important for you to keep your follow up appointments with your medical provider. Who to Call and When: Medical Emergencies: Call 911 immediately if you experience any of the following warning signs and symptoms of Stroke: * Sudden numbness or weakness of the face, arm or leg, especially on one side of the body * Sudden confusion, trouble speaking or understanding * Sudden trouble seeing in one or both eyes * Sudden trouble walking, dizziness, loss of balance or coordination * Sudden severe headache with no cause Do not delay calling 911 if you experience any warning signs or symptoms of a stroke. Delay in seeking medical attention may affect what treatments can be given to you. . Prescriptions: New atorvastatin 40 mg Tablet 40 mg PO QAM 30 Days Qty: 30 RF: 2 clopidogrel 75 mg Tablet 75 mg PO QAM 20 Days Qty: 20 RF: 0 aspirin [Ecotrin Low Strength] 81 mg Tablet,Delayed Release (Dr/Ec) 81 mg PO QAM 30 Days Qty: 30 RF: 0 Continued prednisone 10 mg tablet 10 mg PO DAILY RF: 0 leflunomide 10 mg tablet 10 mg PO DAILY RF: 0 methimazole 5 mg tablet 2.5 mg PO DAILY RF: 0 folic acid 1 mg tablet 1 mg PO DAILY RF: 0 lisinopril-hydrochlorothiazide 10-12.5 mg tablet 1 tab PO DAILY RF: 0 ipratropium-albuterol 0.5 mg-3 mg(2.5 mg base)/3 mL Solution For Nebulization 3 ml INHALATION Q4H PRN (Reason: Shortness Of Breath Or Wheezing) RF: 0 cholecalciferol (vitamin D3) [Vitamin D3] 2,000 unit Tablet 2,000 unit PO DAILY RF: 0 Anoro Ellipta 62.5-25 mcg/actuation Blister With Device 1 inh INHALATION DAILY RF: 0 cyanocobalamin (vitamin B-12) 1,000 mcg Capsule 1,000 mcg PO DAILY RF: 0 Stand-Alone Forms: Medications to Prevent Stroke, [facility]/Other Patient Handouts: Atorvastatin Calcium Oral tablet, Clopidogrel Bisulfate Oral tablet, Stroke Sx, Stroke Dc Discharge Orders: Discharge Order (Routine); Ordered 07/17/19 Ordered By: Demario Bledsoe Admission Data Admit Date/Time: 07/15/19 12:04 Attending Provider: Demario Bledsoe Admit Provider: Demario Bledsoe Primary Care Provider: Mukund Roper Other Providers: Demario Bledsoe ; Sae Milan Service: Telemetry Other Interventions: Discharge Summary Assessment (RN) Last Done: 07/17/19 12:42 Pending Studies at Discharge: No DC Date/Time DO NOT enter until pt leaves facility: 07/17/19 13:57
--- NOTE | 2019-07-17 15:55 | Pharmacy Report ---
Pharmacist Stroke Counseling - Date of Service July 17, 2019 - Scope: Pharmacy has been consulted to provide medication discharge counseling for this patient admitted with ischemic stroke as per the Pharmacist Discharge Counseling for Stroke Patients Protocol. - Medications on Discharge: Home Medications Medication Instructions Recorded Confirmed Anoro Ellipta 1 inh INHALATION DAILY 07/15/19 07/15/19 cholecalciferol (vitamin D3) 2,000 unit PO DAILY 07/15/19 07/15/19 [Vitamin D3] cyanocobalamin (vitamin B-12) 1,000 mcg PO DAILY 07/15/19 07/15/19 folic acid 1 mg PO DAILY 07/15/19 07/15/19 ipratropium-albuterol 3 ml INHALATION Q4H PRN 07/15/19 07/15/19 leflunomide 10 mg PO DAILY 07/15/19 07/15/19 lisinopril-hydrochlorothiazide 1 tab PO DAILY 07/15/19 07/15/19 methimazole 2.5 mg PO DAILY 07/15/19 07/15/19 prednisone 10 mg PO DAILY 07/15/19 07/15/19 New Rx's Medication Instructions Recorded aspirin [Ecotrin Low Strength] 81 mg PO QAM 30 Days #30 tab 07/17/19 atorvastatin 40 mg PO QAM 30 Days #30 tab 07/17/19 clopidogrel 75 mg PO QAM 20 Days #20 tab 07/17/19 - Action: The above medications, specifically ones for stroke treatment/prophylaxis, have been reviewed in detail with the patient and/or patient enrollment representative(s) prior to discharge. This includes indication, common adverse reactions, drug interactions, and medication administration. Medication counseling has been employed using the teach-back method to ensure understanding. - Outcome: The patient and/or patient enrollment representative(s) have demonstrated understanding of the medications. Please note, they are aware that the pharmacist will call them within 72 hours post-discharge to confirm that the appropriate medications are being taken and a nswer any further medication related questions the patient might have at that time. Contact information Individual to be contacted: Sherif Castaneda Relationship to patient (if applicable): Self Phone number: [phone] Best time to call: 2-3 PM Additional comments: * Met with patient at bedside prior to discharge * He has smoked for ~60 years and does not want to quit smoking. States he has tried several times in the past, but was unsuccessful. Reportedly was on nicotine patch, etc. Strongly encouraged him to consider smoking cessation and to f/u with PCP to get extra counseling/help since he now has had a CVA. * Reports he was taking Aleve 3x/wk prior to admission - has arthritis. Advised to D/C Aleve and to avoid other NSAID's now that he is on anti-platelet therapy. Explained incr' bleeding risk. Recommend Tylenol prn instead. He is prescribed chronic prednisone, but apparently was not taking it past week? Unsure... Recommend f/u with Rheumatology to discuss arthritis. Also recommend to consider GI prophylaxis with PPI to since he is prescribed anti- platelet with chronic steroid. * He understands he is to take dual anti-platelet therapy for 21 days, then will be on aspirin monotherapy life-long. He was actually previously on aspirin, but quit taking this ~10 years ago. * He is aware to monitor to s/sx bleeding/bruising and also to report any new muscle symptoms (potential statin adverse effect) - he will call his provider. Thank you for allowing pharmacy to be involved in the care of this patient. Please call [phone] or [phone] with any additional questions
--- NOTE | 2019-07-19 14:39 | Pharmacy Report ---
Pharmacist Post D/C Phone Note - Phone Note: Date of phone call: July 19, 2019. Individual with whom pharmacist spoke to: ISSAC CALI The following questions were reviewed during the phone call with responses listed below each: Can you tell me the medications that you are currently taking as well as when and how you take each medication? -See Table Below When have you missed any doses of your medications? - NONE What side effects are you having from your medications, specifically, the new medications you were started on? - NONE What questions do you have about your medications? - NONE What problems are you having obtaining your medications? - NONE When is your next appointment with your primary care doctor? - Has an appointment scheduled w/ Dr Roper for November - he knows he needs to call and schedule a 1 week f/u appt. He will call today - States that he has an appt with Dr King at the end of the month - He will f/u with neurology at the end of the month As per the Pharmacist Discharge Counseling for Stroke Patients Protocol, this phone call has been completed within 72 hours of discharge. Thank you for allowing us to be involved in the care of this patient. - Home Medications: Home Medications Medication Instructions Recorded Confirmed Anoro Ellipta 1 inh INHALATION DAILY 07/15/19 07/15/19 cholecalciferol (vitamin D3) 2,000 unit PO DAILY 07/15/19 07/15/19 [Vitamin D3] cyanocobalamin (vitamin B-12) 1,000 mcg PO DAILY 07/15/19 07/15/19 folic acid 1 mg PO DAILY 07/15/19 07/15/19 ipratropium-albuterol 3 ml INHALATION Q4H PRN 07/15/19 07/15/19 leflunomide 10 mg PO DAILY 07/15/19 07/15/19 lisinopril-hydrochlorothiazide 1 tab PO DAILY 07/15/19 07/15/19 methimazole 2.5 mg PO DAILY 07/15/19 07/15/19 prednisone 10 mg PO DAILY 07/15/19 07/15/19 New Rx's Medication Instructions Recorded aspirin [Ecotrin Low Strength] 81 mg PO QAM 30 Days #30 tab 07/17/19 atorvastatin 40 mg PO QAM 30 Days #30 tab 07/17/19 clopidogrel 75 mg PO QAM 20 Days #20 tab 07/17/19
== END 2019-07-17 13:57 | disposition home health service (06) | DRG 65 ==
LOC: ED 09:04 → 2S 12:04